=== PATIENT | female | born 1995 | race Two or more races ===

== ENCOUNTER 2025-06-25 07:50 | Day surgery (SDC) | payer OTHER, SELFPAY ==
--- OUTSIDE RECORDS SUMMARY | 2025-06-07 06:20 | XMS_ITS ---
Author Organization [facility] Address [address] [place] [address] Care Team Providers Care Furnace Maintenance Name Role Phone ALVERTO BARNES N.P Primary Care Provider Charles Vargas Jr Unavailable Allergies Allergen (clinical drug ingredient) Drug/Non Drug Allergy documented on EMR Reaction Allergy Type Onset Date Status amoxicillin Amoxicillin Unknown Drug Allergy Act shelly REASON FOR VISIT Patient presents today for IBS, abdominal pain and constipation. Medications Medication SIG (Take, Route, Frequency, Duration) Notes Start Date End Date Status Bariatric Multivitamin/Iron - as directed Orally 06/07/2025 Ac tive metroNIDAZOLE 0.75 % INSERT 1 APPLICATOR VAGINALLY DAILY AT BEDTIME FOR 5 DAYS External for 5 Days Not-Taking Fish Oil 1000 MG 1 capsule Orally Thr ee times a day for 30 day(s) 06/07/2025 Active Vitamin D-3 25 MCG (1000 UT) 1 capsule Orally Once a day for 30 day(s) 06/07/2025 Active metroNIDAZOLE 0.75 % External for 5 Days Not-Taking Social History Tobacco Use: Social History Observation Description Date Details (start date - stop date) Current Smoker NA - NA Tobacco Control (Standard) Question Answer Notes Tobacco use: Current smoker AUDIT-C (Standard) Question Answer Notes Did you have a drink contain ing alcohol in the past year? Yes How often did you have a dri nk containing alcohol in the past year? Monthly or less (1 point) How many drinks did you have on a typical day when you were drinking in the past year? 1 or 2 drinks (0 point) How often did you have six o r more drinks on one occasion in the past year? Never (0 point) Points 1 Interpretation Negative Problems Problem Type SNOMED Code ICD Code Onset Dates Problem Status W/U Status Risk Notes Problem Gastroesophageal reflux disease (874699340) GERD (gastroeso phageal reflux disease) (K21.9) Active confirmed Problem Gastrointestinal tract problem (965008707) Abn findings-G I tract (R93.3) Active confirmed Vital Signs Temperature 97.9 degrees Fahrenheit 06/07/20 25 Blood pressure systolic 001 mm Hg 06/07/20 25 Blood pressure diastolic 01 mm Hg 025 Height 65 in 06/07/2025 Weight 204.8 lbs 06/07/2025 BMI 34.08 kg/m2 06/07/2025 Encounters Encounter Location Date Provider Diagnosis [facility] [address] [place] [address] 06/07/2025 Charles Parks Jr GERD (gastroesophageal reflux disease) K21.9 and Abn findings-GI tract R93.3 Assessments Encounter Date Diagnosis (ICD Code) Assessment Notes Treatment Notes Treatment Clinical Notes Section Notes 06/07/2025 GERD (gastroesopha geal reflux disease) (ICD-10 - K21.9) We discussed her symptoms today. We discussed gastroesophageal reflux disease today. She will begin omeprazole 20 mg daily for good control of her symptoms. We discussed diet, lifestyle modification, and weight management regarding the treatment of reflux. We recommended further evaluation with upper endoscopy. We discussed risks and benefits of the procedure today. She understands these and agrees to proceed. Based on her review of her CT scan which is abnormal and her symptoms, she should have further evaluation with colonoscopy. She is aware of risks and benefits and agrees to proceed. This will be scheduled at her convenience. She is advised to stop fish oil 1 week before the procedure. 06/07/2025 Abn findings-GI tract (ICD-10 - R93.3) We discussed her symptoms today. We discussed gastroesophageal reflux disease today. She will begin omeprazole 20 mg daily for good control of her symptoms. We discussed diet, lifestyle modification, and weight management regarding the treatment of reflux. We recommended further evaluation with upper endoscopy. We discussed risks and benefits of the procedure today. She understands these and agrees to proceed. Based on her review of her CT scan which is abnormal and her symptoms, she should have further evaluation with colonoscopy. She is aware of risks and benefits and agrees to proceed. This will be scheduled at her convenience. She is advised to stop fish oil 1 week before the procedure. Plan Of Treatment Future Test Test Name Order Date UPPER GI ENDOSCOPY 06/07/2025 COLONOSCOPY 06/07/2025 Next Appt Details Provider Name:Charles cummings , 06/25/2025 11:50:00 AM, [address] [place] [address] , [place], [place], [phone], Progress Notes * RUPINDER MARKHAMDOB:1995 (30 yo F)Acc No.[id number]:06/07/2025 Progress Notes Patient: RUPINDER SOTO Provider: Fanny Parks MD :1995 A ge:30 Y S ex:Female Date:06/07/2025 Address:[address] [place], [place] [id number] Pcp:ALVERTO BARNES N.P Subjective: * Chief Complaints: * 1 . Patient presents today for IBS, abdominal pain and constipation.. * ROS: G eneral/Constitutional: Change in appetite d enies. F atigue d enies. ? E NT: Patient denies d ifficulty swallowing. R espiratory: Patient denies s hortness of breath. C ardiovascular: Patient denies c hest pain. G astrointestinal: Comments S [facility] for details. G enitourinary: Difficulty urinating d enies. I ncontinence d enies. M usculoskeletal: Patient denies m uscle aches. S kin: Patient denies p ruritis. N eurologic: Patient denies l ow back pain. P sychiatric: Patient denies m ental or physical abuse. * Medical History: A sthma. * Surgical History: e ar tubes removed , complete ACL repair 2011, bariatric gastric sleeve 12/07. * Hospitalization/Major Diagno stic Procedure: s tomach issues, partial paralyzed bulging disk. 02/07. * Family History: F ather: alive. M other: alive, diagnosed with HTN (hypertension), Heart disease. Dad holes in intestines ended up with bag for months. No family history of liver cancer. * Social History: T obacco Use: T obacco Control (Standard) T obacco use: C urrent smoker. M iscellaneous: M arital status: single. D rug/Alcohol: A AGUSTINA-C (Standard) D id you have a drink containing alcohol in the past year? Y es,?How often did you have a drink containing alcohol in the past year? M onthly or less (1 point), H ow many drinks did you have on a typical day when you were drinking in the past year? 1 or 2 drinks (0 point), H ow often did you have six or more drinks on one occasion in the past year? N ever (0 point), P oints 1 , I nterpretation N egative. * Medications: T aking Fish Oil 1000 MG Capsule 1 capsule Orally Three times a day , Taking Vitamin D-3 25 MCG (1000 UT) Capsule 1 capsule Orally Once a day , Taking Bariatric Multivitamin/Iron - Tablet Chewable as directed Orally , Not-Taking/PRN metroNIDAZOLE 0.75 % Gel INSERT 1 APPLICATOR VAGINALLY DAILY AT BEDTIME FOR 5 DAYS External , Not-Taking/PRN metroNIDAZOLE 0.75 % Gel External * Allergies: A moxicillin. Objective: * Vitals: W t:204.8lbs, Ht:65in, BMI:34.08Index, BP:001/01mm Hg, Temp:97.9, Ht-cm: 165.1, Wt-k.9. * Examination: G eneral Examination: GENERAL APPEARANCE: i n no acute distress. HEAD: n ormocephalic. EYES: s clera non-icteric. ORAL CAVITY: m ucosa moist. NECK/THYROID: n o lymphadenopathy. SKIN: a nicteric. HEART: S 1, S2 normal, no murmurs. LUNGS: c lear to auscultation bilaterally. CHEST: n ormal shape and expansion. ABDOMEN: s oft, nontender, nondistended, bowel sounds present, no organomegaly . EXTREMITIES: n o clubbing, cyanosis, or edema. PSYCH: c ognitive function intact. Assessment: * Assessment: 1. G ERD (gastroesophageal reflux disease) - K21.9 (Primary) 2 . A bn findings-GI tract - R93.3 We discussed her symptoms to day. We discussed gastroesophageal reflux disease today. She will begin omeprazole 20 mg daily for good control of her symptoms. We discussed diet, lifestyle modification, and weight management regarding the treatment of reflux. We recommended further evaluation with upper endoscopy. We discussed risks and benefits of the procedure today. She understands these and agrees to proceed. Based on her review of her CT scan which is abnormal and her symptoms, she should have further evaluation with colonoscopy. She is aware of risks and benefits and agrees to proceed. This will be scheduled at her convenience. She is advised to stop fish oil 1 week before the procedure. Plan: * Treatment: ?Procedure: COLONOSCOPY (Ordered for 06/07/2025)* sched for 06/25/25 at 11:50 ammac,miralax 2.?Abn findings-GI tract?Procedure: UPPER GI ENDOSCOPY (Ordered for 06/07/2025)* sched for 06/25/25 at 11:50 ammac ?Procedure: COLONOSCOPY (Ordered for 06/07/2025)* sched for 06/25/25 at 11:50 ammac,miralax * Preventive Medicine: Counseling: C are goal follow-up plan: A joce Normal BMI Follow-up D ietary management education, guidance, and counseling, B TX management provided Y es. * * The named appointment provid er may or may not be the originator of this progress note, and it is not deemed complete until electronically signed by the appointment provider. Sign off status: Pending * Provider: Fanny Parks MD Date: 06/07/2025 Generated for Chari steele/Tangela/Zaireitting on: 06/08/2025 04:06 PM EDT History and Physical Notes * Examination Category Sub-Category Detail Notes Category Not es General Examination GENERAL APPEARANCE: in no acute di stress HEAD: normocephalic EYES: sclera non-icteric NECK/THYROID: no lymphadenopathy HEART: S1, S2 normal, no mu rmurs CHEST: normal shape and exp ansion LUNGS: clear to auscultatio n bilaterally ABDOMEN: soft, nontender, non distended, bowel sounds present, no organomegaly SKIN: anicteric EXTREMITIES: no clubbing, cyanosi s, or edema PSYCH: cognitive function i ntact ORAL CAVITY: mucosa moist
--- OUTSIDE RECORDS SUMMARY | 2025-06-08 16:06 | XMS_ITS | Patient Health Record ---
Author Organization [facility] Address [address] [place] [phone] Care Team Providers Care Tank Welder Name Role Phone ALVERTO BARNES N.P Primary Care Provider Charles Vargas Jr Unavailable Allergies Allergen (clinical drug ingredient) Drug/Non Drug Allergy documented on EMR Reaction Allergy Type Onset Date Status amoxicillin Amoxicillin Unknown Drug Allergy Act shelly Reason For Referral No Information Medications Medication SIG (Take, Route, Frequency, Duration) [...] 0.75 % External for 5 Days Not-Taking Immunizations Vaccine Route Administration Date Status Comme nts Influenza Unknown 06/02/2024 Administered Social History Tobacco Use: Social History Observation [...] Problem Status W/U Status Risk Notes Problem Gastrointestinal tract problem (165370617) Abn findings-G I tract (R93.3) Active confirmed Problem Gastroesophageal reflux disease (505490376) GERD (gastroeso phageal reflux disease) (K21.9) Active confirmed Vital Signs Temperature 97.9 degrees Fahrenheit 06/07/2025 Blood pressure diastolic 01 mm Hg 06/07/2025 Height 65 in 06/07/2025 Blood pressure systolic 001 mm Hg 06/07/2025 Weight 204.8 lbs 06/07/2025 BMI 34.08 kg/m2 06/07/2025 Encounters Encounter Location Date Provider Diagnosis [facility] [address] [place] [address] 06/07/2025 Charles Parks Jr GERD (gastroesophageal reflux disease) K21.9 and Abn findings-GI tract R93.3 [facility] [address] [place] [address] 02/11/2025 Charles Parks Jr Assessments Encounter Date Diagnosis (ICD Code) Assessment Notes Treatment Notes Treatment Clinical Notes Section Notes 06/07/2025 Abn findings-GI tract (ICD-10 - R93.3) [...] oil 1 week before the procedure. 06/07/2025 GERD (gastroesopha geal reflux disease) (ICD-10 [...] 06/07/2025 Next Appt Details Provider Name:Charles cummings Jr, 06/25/2025 11:50:00 AM, [address] [place] [address] , [place], [place], [phone], Insurance Providers Payer Name Payer Address Payer Phone Subscriber Number Group Number Insured Name Patient Relationship to Insured Coverage Start Date Coverage End Date [facility] [address] [place] [address] [phone] [id number] RUPINDER MARKHAM Self - patient is the insured Medical (General) History Medical History History ICD Code asthma Surgical History Surgery Date(Month/Year) bariatric gastric sleeve 12/07 complete ACL repair 2011 ear tubes removed Hospitalization History Reason Date(Month/Year) stomach issues, partial paralyzed bulgin g disk. 02/07
--- OUTSIDE RECORDS SUMMARY | 2025-06-08 16:06 | XMS_ITS | Clinical Summary ---
Author Organization [facility] Address [address] [place] [address] Phone Care Team Providers Care Feature Writer Name Role Phone Elizabeth Hutchinson SENIOR PORTFOLIO ANALYST Primary Care Provider [phone] Allergies Active Allergy Reactions Criticality Noted Date Comments Amoxicillin 01/10/2016 Not sure what the reaction is per pt House Dust 09/11/2024 Kidney Mirza 09/11/2024 Mold 09/11/2024 Pollen Extracts 09/11/2024 Medications albuterol HFA (PROAIR HFA ; PROVENTIL HFA ; VENTOLIN HFA) 90 mcg/actuation inhaler Inhale 1 Puff into the lungs 4 times daily as needed for Cough, Wheezing or Shortness of Breath. 8 Active rizatriptan (MAXALT) 10 mg tablet Take 1 tablet (10 mg total) by mouth 1 (one) time if needed for migraine (may repeat x1). May repeat in 2 hours if unresolved. Do not exceed 30 mg in 24 hours. 9 tablet 4 09/11/20 25 Active Winlevi 1 % cream APPLY TO FACE TWICE DAILY Active clobetasoL (TEMOVATE) 0.05 % topical solution APPLY TO SCALP TWICE A DAY FOR 4 WEEKS THEN NEEDED 5 Active fluocinolone and shower cap 0.01 % oil APPLY TO SCALP AT BEDTIME, WASH OUT IN MORNING FOR 2 WEEKS 5 Active clindamycin (CLEOCIN T) 1 % lotion Apply topically 1 (one) time each day if needed. Active Active Problems Problem Noted Date Diagnosed Date Anxiety 09/02/2024 Asthma 09/02/2024 Depression 09/02/2024 Lactose intolerance 09/02/2024 Learning disability 09/02/2024 Migraine 09/02/2024 Morbid obesity ([facility] V24, [facility] V28) 2023 PCOS (polycystic ovarian syndrome) 01/17/2016 Elevated fasting glucose 01/10/2016 Encounters Date Type Department Care Team Description 04/15/2025 10:30 AM EDT Telemedicine [facility] [address] [place] [address] Corry Ochoa PA Migraine without aura and without status migrainosus, not intractable (Primary Dx) from Last 3 Months Immunizations Name Administration Dates Next Due Influenza trivalent, with pr eservative (Fluzone; Afluria) 6mo and older 07/15/2014 Tdap Tetanus diptheria acell ular pertussis (Boostrix; Adacel) 7yo and older 09/24/2017 Surgical History Surgery Date Site/Laterality Comments GASTRIC BYPASS Medical History Medical History Date Comments PCOS (polycystic ovarian syndrome) Asthma Migraines Hydradenitis Back pain Social History Tobacco Use Types Packs/Day Years Used Date Smoking Tobacco: Never Assessed Comments Unknown Sex and Gender Information Value Date Recorded Sex Assigned at Not on file Legal Sex Female 11:16 PM EST Gender Identity Not on file Sexual Orientation Not on file Obstetrics History Last Filed Vital Signs Vital Sign Reading Time Taken Comments Blood Pressure 119/78 11/23/2024 8:37 AM EDT Pulse 67 11/23/2024 8:37 AM EDT Temperature 36 C (96.8 F) 11/23/2024 8:37 AM EDT Respiratory Rate - - Oxygen Saturation 98% 11/23/2024 8:37 AM EDT Inhaled Oxygen Concentration - - Weight 99.8 kg (220 lb) 09/11/2024 11:18 AM EST Height 162.6 cm (5' 4 ) 09/11/2024 11:18 AM EST Body Mass Index 37.76 09/11/2024 11:18 AM EST Plan of Treatment Health Maintenance Due Date Last Done Comments Cervical Cancer Screening: Pap Smear 2018 Pneumococcal Vaccine: Pediatrics (0 to 5 Years) and At-Risk Patients (6 to 49 Years) (2 of 2 - PCV) 06/27/2023 06/27/2022 Cholesterol Screening (Lipid Panel) 09/01/2024 09/24/2017 HIV Screening 09/01/2024 Hepatitis C Screening 09/01/2024 Social Influencers of Health Screening 09/01/2024 Depression Screening 09/16/2024 COVID-19 Vaccine ( season) 2025 10/10/2022, 09/13/2021, 11/16/2020, Additional history exists Influenza Vaccine (#1) 2025 , 08/23/2023, 06/27/2022, Additional history exists Hypertension/CHF/CAD Annual BMP Blood Test 09/11/2025 09/11/2024, 09/24/2017 DTaP,Tdap,and Td Vaccines (10 - Td or Tdap) 11/09/2034 11/09/2024, 01/29/2019, 09/24/2017, Additional history exists Hepatitis B Vaccines Completed 1995, 1997, 1997 HIB Vaccines Completed 07/18/1998, 07/18, 1997, Additional history exists IPV Vaccines Completed 02/06/2001, 01/15, 1997, Additional history exists MMR Vaccines Completed 01/29/2002, 02/08/1998 Varicella Vaccines Aged Out 09/26/2009, 02/09/1998 No longer eligible based on patient's age to complete this topic HPV Vaccines Completed 03/30/2010, 11/14, 09/26/2009 Meningococcal ACWY Vaccine Completed 01/03/2015, Hepatitis A Vaccines Aged Out No long er eligible based on patient's age to complete this topic Meningococcal B Vaccine Aged Out No l onger eligible based on patient's age to complete this topic RSV Immunization Patients Under 20 months Aged Out No longer eligible based on patient's age to complete this topic Procedures Procedure Name Priority Date/Time Associated Diagnosis Comments CREATININE, SERUM Routine 09/11/2024 12: 15 PM EST Migraine without aura and without status migrainosus, not intractable Pituitary adenoma ([facility] V24, [facility] V28) LIPID PANEL Routine 09/24/2017 from Last 3 Months or Most Recently Relevant to Health Maintenance Results * Creatinine (09/11/2024 12:15 PM EST) Creatinine 0.84 0.50 - 1.10 mg/dL LAB CHEMISTRY METHOD 09/11/2024 2:37 PM EST [facility] eGFR 98 >=60 mL/min/1. 73m2 LAB CHEMISTRY METHOD 09/11/2024 2:37 PM EST [facility] Comment:Calculation based on the Chronic Kidney Disease Epidemiology Collaboration (CKD-EPI) equation refit without adjustment for race. Blood Venous blood specimen / Unknown Venipuncture / Unknown 09/11/2024 12:15 PM EST 09/11/2024 12:15 PM EST [place] Mcmillan MD LAB BLOOD ORDERABLES Fin al Result [facility] [address] [place] [address], * Lipid panel (09/24/2017) LDL/HDL Ratio 2 0 - 4 Triglycerides 110 0 - 150 mg/dL Cholesterol 164 0 - 200 mg/dL HDL 68 >=40 mg/dL LDL Cholesterol 74 0 - 100 mg/dL Blood Venous blood specimen / Unknown [facility] Provider LAB BLOOD ORDERABLES Melba l Result from Last 3 Months or Most Recently Relevant to Health Maintenance Insurance [facility] Care Teams Feature Writer Relationship Specialty Start Date End Date Elizabeth Hutchinson NP [address] [place] [address] PCP - General Nurse Practitioner 09/11/24
--- OUTSIDE RECORDS SUMMARY | 2025-06-08 16:07 | XMS_ITS | Patient Health Record ---
Author Organization [facility] Address [address] [place] [address] Care Team Providers Care Sewing Department Supervisor Name Role Phone Elizabeth Hutchinson NP Primary Care Provider UnavailTwan Harrison Unavailable [phone] Allergies Allergen (clinical drug ingredient) Drug/Non Drug Allergy documented on EMR Reaction Allergy Type Onset Date Status Penicillin Unknown Drug Allergy Active Reason For Referral No Information Medications Medication SIG (Take, Route, Fr equency, Duration) Notes Start Date End Date Status Gabapentin Active Tylenol PRN Active Calcium Active Multivitamin Active Bariatric Multivitamins Active Vitamin D Active ProAir HFA PRN Active Social History Tobacco Use: Social History Observation Description Date Details (start date - stop date) Never Smoker NA - NA Tobacco use other than smoking: Question Answer Notes Are you an other tobacco user? Yes Tobacco Control (Standard) Question Answer Notes Tobacco use: Nonsmoker Additional Findings: Tobacco non-user Current no nsmoker AUDIT-C (Standard) Question Answer Notes Did you have a drink contain ing alcohol in the past year? Yes How often did you have a dri nk containing alcohol in the past year? Monthly or less (1 point) How many drinks did you have on a typical day when you were drinking in the past year? Declined to specify (0 point) How often did you have six o r more drinks on one occasion in the past year? Declined to specify (0 point) Points 1 Interpretation Negative Problems Problem Type SNOMED Code ICD Code Onset Dates Problem Status W/U Status Risk Notes Problem Osteoarthritis of midtarsal joint of left foot (3155220872682810 ) Osteoarthritis of midtarsal joint of left foot (M19.072) Active confirmed Problem Osteoarthritis of midtarsal joint of right foot (6600144823760024 ) Osteoarthritis of midtarsal joint of right foot (M19.071) Active confirmed Vital Signs Height 5ft 4in in 02/15/2025 Weight 213 lbs 02/15/2025 BMI 36.56 kg/m2 02/15/2025 Encounters Encounter Location Date [facility] [address] [place] [phone] 02/15/2025 Twan Jaimes Pain in left foot M79.672 ; Pain in left ankle and joints of left foot M25.572 ; Bursitis of left foot M77.52 ; Osteoarthritis of midtarsal joint of left foot M19.072 ; Pain in right foot M79.671 ; Pain in right ankle and joints of right foot M25.571 ; Bursitis of right foot M77.51 and Osteoarthritis of midtarsal joint of right foot M19.071 [facility] [address] 02/09/2025 Twan Jaimes Assessments Encounter Date Diagnosis (ICD Code) Assessment Notes Treatment Notes Treatment Clinical Notes Section Notes 02/15/2025 Pain in left ankle and joints of left foot (ICD-10 - M25.572) 02/15/2025 Pain in left foot (ICD-10 - M79.672) 02/15/2025 Bursitis of left foot (ICD-10 - M77.52) 02/15/2025 Osteoarthritis of midtarsal joint of left foot (ICD-10 - M19.072) 02/15/2025 Pain in right foot (ICD-10 - M79.671) 02/15/2025 Pain in right ankle and joints of right foot (ICD-10 - M25.571) 02/15/2025 Bursitis of right foot (ICD-10 - M77.51) 02/15/2025 Osteoarthritis of midtarsal joint of right foot (ICD-10 - M19.071) Plan Of Treatment Pending Test Test Name Order Date X ray : Foot, left 3V 02/15/2025 X ray : Foot, right 3V 02/15/2025 Insurance Providers Payer Name Payer Address Payer Phone Subscriber Number Group Number Insured Name Patient Relationship to Insured Coverage Start Date Coverage End Date [facility] [address] [facility] [address] [id number] Rosa Carvajal Self - patient is the insured Medical (General) History Medical History History ICD Code asthma Headaches/Migraines Surgical History Surgery Date(Month/Year) complete acl 2011 gastric sleeve 12/03/23 Hospitalization History Reason Date(Month/Year) ER- stomach issues, back issues 01/28-01/14 06/10 ER-stomach issues, back issues 01/19- ER- stomach issues, back issues 01/14-
--- OUTSIDE RECORDS SUMMARY | 2025-06-08 16:07 | XMS_ITS | Patient Health Record ---
Author Organization [facility] [address] Address [address] [place] [address] Care Team Providers Care Aquaculture Program Director Name Role Phone Michael Belcher Unavailable Allergies Allergen (clinical drug ingredient) Drug/Non Drug Allergy documented on EMR Reaction Allergy Type Onset Date Status amoxicillin Amoxicillin Unknown Drug Allergy Act shelly Reason For Referral No Information Medications Medication SIG (Take, Route, Fr equency, Duration) Notes Start Date End Date Status Contrave 8-90 MG 2 tablets Orally Twi ce a day; Duration: 30 days Active metFORMIN HCl ER 500 MG 1 tablet with ev ening meal Orally Once a day; Duration: 30 day(s) 08/29/2022 Active Topamax 25 MG 1 tablet Orally Once a day; Duration: 30 day(s) 09/03/2022 Active Problems Problem Type SNOMED Code ICD Code Onset Dates Problem Status W/U Status Risk Notes Problem Morbid obesity (disorder) (468069156) Morbid (severe) obesity due to excess calories (E66.01) Active confirmed Problem Morbid obesity (235662798) Morbid obesity (E66.01) Active confirmed Problem Migraine (81662963) Migraine without status migrainosus, not intractable, unspecified migraine type (G43.909) Active confirmed Problem Seasonal allergy (211168801) Seasonal allergies (J30.2) Active confirmed Problem Fatty liver (651306867) Fatty liver (K76.0) Active confirmed Problem Body mass index 40+ - severely obese (614752928) BMI 50.0-59.9, adult (Z68.43) Active confirmed Problem Mild intermittent asthma (641620337) Mild intermittent asthma without complication (J45.20) Active confirmed Problem Polycystic ovary syndrome (disorder) (367671170) PCOS (polycystic ovarian syndrome) (E28.2) Active confirmed Problem Body mass index 40+ - severely obese (828004378) BMI 45.0-49.9, adult (Z68.42) Active confirmed Plan Of Treatment No Information Insurance Providers Payer Name Payer Address Payer Phone Subscriber Number Group Number Insured Name Patient Relationship to Insured Coverage Start Date Coverage End Date [facility] [address] [place] [address] [phone] [id number] Rosa Carvajal Self - patient is the insured Medications Administered Medication Instructions Date of Administration Dosage Notes MICC B12 INJECTION 09/26/2021 lot # [id number] MICC B12 INJECTION 10/10/2021 lot # [id number] MICC B12 INJECTION 10/31/2021 lot [id number] MICC B12 INJECTION 03/27/2022 MICC B12 INJECTION 05/23/2022 lot # [id number] Medical (General) History Medical History History ICD Code migraine headaches seasonal allergies Surgical History Surgery Date(Month/Year) acl repair
[2025-06-23 16:27] VITALS: BMI 36.0
--- NOTE | 2025-06-24 10:35 | HO.ANESPROP2 ---
Documented by User: Debra Ji NP 06/24/25 10:35 HPI - Anesthesia Eval Consult details Narrative: 30yo F for Upper Endoscopy and Colonoscopy [facility] Past Medical History Medical History Bradycardia Environmental allergies GERD (gastroesophageal reflux disease) KYLE (generalized anxiety disorder) MDD (major depressive disorder) Chronic low back pain Polycystic ovary syndrome GALINA (obstructive sleep apnea) Obesity Migraine HTN (hypertension) Hidradenitis suppurativa Depression Anxiety Asthma Abdominal pain Surgical History Surgical History Hx of wisdom tooth extraction (2014) Hx of arthroscopy of left knee History of repair of ACL (2011) Hx of bariatric surgery (12/12/23) Social History Social History Patient Tobacco Use Status: Current everyday Tobacco user Have you been hit, kicked, punched, or otherwise hurt by someone within the past year? If so, by whom?: No Are you DNR?: No Advance Directives: No Advance Directives Information Provided: Yes Patient : No FDLMP: last mth Meds Allergies Allergy/AdvReac Type Severity Reaction Status Date / Time amoxicillin Allergy Unknown Verified 06/23/25 13:21 Home Medications ?Medication ?Instructions ?Recorded ?Confirmed ?Last Taken ?Type albuterol sulfate 90 mcg/actuation 2 puff inhalation Q4-6H PRN 06/23/25 06/23/25 Unknown History aerosol inhaler Shortness Of Breath Or Wheezing cholecalciferol (vitamin D3) 50 50 mcg PO DAILY 06/23/25 06/23/25 06/17/25 History mcg (2,000 unit) capsule (Vitamin D3) gjdyfnxr-[id number]-ndoj 45 mg-folic cap PO 06/23/25 06/17/25 History acid 800 mcg-vit K 120 mcg capsule (Bariatric Multivitamins) sennosides 8.6 mg tablet (senna) 8.6 mg PO QAM 06/23/25 06/23/25 06/17/25 History Exam Height,Weight and Vital Signs: Height 5 ft 4 in Weight 95.254 kg Assessment and Plan Assessment Anesthesia Assessment: Chart Reviewed Documented by User: Bobby Burton MD 06/25/25 09:08 [facility] Past Medical History Medical History Bradycardia Environmental allergies GERD (gastroesophageal reflux disease) KYLE (generalized anxiety disorder) MDD (major depressive disorder) Chronic low back pain Polycystic ovary syndrome GALINA (obstructive sleep apnea) Obesity Migraine HTN (hypertension) Hidradenitis suppurativa Depression Anxiety Asthma Abdominal pain Surgical History Surgical History Hx of wisdom tooth extraction (2014) Hx of arthroscopy of left knee History of repair of ACL (2011) Hx of bariatric surgery (12/12/23) Social History Social History Patient Tobacco Use Status: Current everyday Tobacco user Have you been hit, kicked, punched, or otherwise hurt by someone within the past year? If so, by whom?: No Are you DNR?: No Advance Directives: No Advance Directives Information Provided: Yes Patient : No FDLMP: last mth Meds Allergies Allergy/AdvReac Type Severity Reaction Status Date / Time amoxicillin Allergy Unknown Verified 06/23/25 13:21 Home Medications ?Medication ?Instructions ?Recorded ?Confirmed ?Last Taken ?Type albuterol sulfate 90 mcg/actuation 2 puff inhalation Q4-6H PRN 06/23/25 06/23/25 Unknown History aerosol inhaler Shortness Of Breath Or Wheezing cholecalciferol (vitamin D3) 50 50 mcg PO DAILY 06/23/25 06/23/25 06/17/25 History mcg (2,000 unit) capsule (Vitamin D3) mwtoelmx-npkjdwom-rjax 45 mg-folic cap PO 06/23/25 06/17/25 History acid 800 mcg-vit K 120 mcg capsule (Bariatric Multivitamins) sennosides 8.6 mg tablet (senna) 8.6 mg PO QAM 06/23/25 06/23/25 06/17/25 History Exam Exam Date and Time: 06/25/25 Airway TM Dist: >3cm Neck ROM: Full Partial: Upper Heart: rr Lungs: ctab vesicular
[2025-06-25 08:28] VITALS: BP 117/79; PULSE 48; RESP 18; TEMP 36.1; O2SAT 97; BMI 34.8
[2025-06-25 08:52] LABS: UPreg QC Valid YES
[2025-06-25] MEDS: Lactated Ringers 1,000 ML 100 ML IVCONT (09:16)
--- NOTE | 2025-06-25 09:33 | MHC.SHP ---
Pre-Procedural Eval Section A - 24 Hr Update-Section A only Date of Service: 06/25/25 The patient is an INPATIENT: No Changes since office visit: No Cold of Flu in the past 2 weeks, No New Medical Problems, No Changes in Medication and No Patient answered all questions The patient has been examined within 24 hours of the surgical procedure. The History & Physical has been completed within 30 days and I have reviewed it.: Yes Section B - Complete if H&P > 30 days Chief Complaint: gerd, Allergies: Allergies Allergy/AdvReac Type Severity Reaction Status Date / Time amoxicillin Allergy Unknown Verified 06/23/25 13:21 Plan I have reviewed the history and physical and performed a pertinent physical examination on my patient. No changes have occurred unless specified. Time Spent With Patient Time: Total time managing care of this patient today ____ minutes.
[2025-06-25 10:23] VITALS: BP 130/64; PULSE 66; RESP 13; TEMP 36.2; O2SAT 100
[2025-06-25 10:41] VITALS: BP 149/85; PULSE 70; RESP 16; TEMP 36.2; O2SAT 100
--- NOTE | 2025-06-25 11:09 | OP_ITS ---
DATE OF SERVICE: 06/25/2025 SURGEON: Charles Parks MD INDICATIONS: 1. Gastroesophageal reflux disease. 2. Abnormal findings in the GI tract. PREOPERATIVE DIAGNOSIS: POSTOPERATIVE DIAGNOSIS: PROCEDURE PERFORMED: Upper endoscopy with biopsy, colonoscopy to the terminal ileum with biopsy. ESTIMATED BLOOD LOSS: COMPLICATIONS: ANESTHESIA: Monitored anesthesia care. ASSISTANTS: SPECIMENS: DESCRIPTION OF PROCEDURE: A history and physical was performed. The risks and benefits of the procedure were explained to the patient and informed consent was obtained. The patient was placed in the left lateral decubitus position. The Olympus video gastroscope was introduced into the esophagus, stomach, and duodenum. Examination was performed. The scope was removed. She was repositioned for colonoscopy. A digital rectal exam was performed and was found to be normal. The Olympus pediatric video colonoscope was introduced into the rectum and advanced to the cecum. The cecum was identified by transillumination, palpation, and identification of ileocecal valve. Examination was performed. The scope was removed. She tolerated both procedures well and was returned to the recovery area in stable condition. FINDINGS: Upper endoscopy: 1. Esophagus: The esophagus was normal. Biopsies were obtained from the EG junction. 2. Stomach: The stomach showed surgical changes consistent with a prior history of gastric sleeve surgery. Biopsies were obtained from the antrum. No ulcer was identified. 3. Duodenum: The bulb and 2nd portion were normal. Random duodenal biopsies were obtained. Colonoscopy: The terminal ileum was normal. This was biopsied. The visualized colonic mucosa was within normal limits without evidence of masses or ulcers. There was no evidence of Crohn disease or ulcerative colitis. Biopsies were obtained from the sigmoid. Retroflexed examination was normal. IMPRESSION: 1. Normal upper endoscopy. 2. Normal colonoscopy. RECOMMENDATION: Follow up the biopsy results. Screening colonoscopy at age 47. MD BONNIE Poon/SYED / [id number] MTDJsoe
== END 2025-06-25 11:04 | disposition home or self-care (01) ==
PROVIDERS: Nurse Practitioner; PCP Nurse Practitioner Family; Visit Provider Internal Medicine Gastroenterology
PROC: (CPT 45380; principal; 2025-06-25 09:50)
DX: K58.9 Irritable bowel syndrome, unspecified (principal); K59.00 Constipation, unspecified; R10.9 Unspecified abdominal pain; Z86.19 Personal history of other infectious and parasitic diseases; K21.9 Gastro-esophageal reflux disease without esophagitis; J45.909 Unspecified asthma, uncomplicated; Z98.84 Bariatric surgery status; Z79.899 Other long term (current) drug therapy; Z88.1 Allergy status to other antibiotic agents; F17.200 Nicotine dependence, unspecified, uncomplicated
CPT/HCPCS: 45380; 43239; 81025; 88305; 88313; 88342; J0461; J1596; J2003; J2405; J2704; J2765; J3010

== ENCOUNTER 2025-08-23 09:03 | Outpatient (AMB) | payer OTHER, SELFPAY ==
--- NOTE | 2025-08-23 09:11 | A.PHYSOV_ITS ---
Vital Signs 08/23/25 09:15 Height 5 ft 4 in Weight 206 lb BMI 35.4 Intake Visit Reasons: F/U after injection 07/09/2025 Intake Note: Patient is here for follow up after 07/09/25 Caudal. Allergies amoxicillin Allergy (Verified 08/23/25 09:17) Unknown HPI Comments Details: History of Present Illness The patient is a 30 year old female presenting for a follow-up visit for chronic low back pain with left-sided sciatica. She reports about 30-40% improvement following a recent caudal sacral injection, with the pain now localized more to her left leg rather than her back. Her symptoms, which include radiating pain and tightness in the lower back, worsen on days when she is on her feet a lot. 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 She has returned to work with restrictions, avoiding heavy lifting. For pain management, she uses ice, heat, and stretching, and takes Tylenol when needed. She has a prescription for gabapentin but takes it only on bad days due to side effects. She has also recently started taking turmeric shots and has tried a topical cannabis cream. A previous injection was less effective, providing relief for only two weeks before her symptoms, including leg dragging, returned. Pain Description - Location: The patient reports pain primarily in the left leg with associated tightness in the lower back. - Quality: Described as a radiating pain and tightness. - Exacerbating Factors: Pain is worse on days with prolonged standing. - Relieving Factors: She finds relief with rest, stretching on a recliner, ice, and heat. 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 Procedure: Caudal injection 07/09/2025 40% reduction PFSH Medical History Bradycardia Environmental allergies GERD (gastroesophageal reflux disease) KYLE (generalized anxiety disorder) MDD (major depressive disorder) Chronic low back pain Polycystic ovary syndrome GALINA (obstructive sleep apnea) Obesity Migraine HTN (hypertension) Hidradenitis suppurativa Depression Anxiety Asthma Abdominal pain Surgical History Hx of wisdom tooth extraction (2014) Hx of arthroscopy of left knee History of repair of ACL (2011) Hx of bariatric surgery (12/12/23) Social History (Updated 08/20/25 @ 07:58 by Tatianna Munguia MA) Alcohol intake: current Alcohol intake frequency: holidays/special occasions only Patient Tobacco Use Status: Current everyday Tobacco user Review of Systems Narrative Review of Systems - Musculoskeletal: Reports lower back tightness, especially after being on her feet a lot. - Neurological: Reports radiating pain in the left leg. - She also reports a history of her leg dragging before the most recent injection. Physical Exam Exam Exam: Physical Exam Lumbar Spine: Examination of her lumbar spine, there is no visible swelling or deformity. She is tender to lower lumbar facets. She is otherwise nontender. Full range of motion. Special Tests: Lhermittes sign was negative Heel Toe walk is normal Left straight leg raise: Less positive left Right straight leg raise: Negative Special tests Andry test is negative Ganslen's test is negative SI Joint compression test negative Carrie test negative Piriformis stretch is negative Lower Extremities: Full range of motion bilateral lower extremities. No calf pain or edema. Neuro: Sensation: Intact to lower extremities bilaterally Strength L2 (Psoas): 5/5 on the left and 5/5 on the right. L3 (Quads): 5/5 on the left and 5/5 on the right. L4 (Ant tibialis): 5/5 on the left and 5/5 on the right. L5 (EHL) 5/5 on the left and 5/5 on the right. S1 (Gastroc): 5/5 on the left and 5/5 on the right. DTR L4: (Patellar) Left 2 Right 2 S1: (Achilles) Left 2 Right 2 Babinski Downgoing No pathologic clonus. No involuntary movement. Vital Signs: BMI result Body Mass Index 35.4 Assessment & Plan Assessment & Plan (1) Lumbar radiculopathy: Code(s): M54.16 - Radiculopathy, lumbar region Category: Medical (2) Lumbar spondylosis: Code(s): M47.816 - Spondylosis without myelopathy or radiculopathy, lumbar region Category: Medical Plan Pain Management - Affect: The patient states her pain is significantly affecting her quality of life and her ability to be active. - Analgesia: The patient reports 30-40% pain relief from a recent sacral injection. - She uses Tylenol as needed, has tried topical cannabis cream, and has recently started taking turmeric. - Adverse Effects: She reports that even a low dose of gabapentin makes her feel unwell, so she only takes it when absolutely necessary. - Activities of Daily Living: She has returned to work with restrictions, such as no heavy lifting. 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 - Aberrant Drug Related Behaviors: No aberrant behaviors were reported. Plan Patient was informed and verbally consented to the use of an ambient scribe for clinic note documentation during this visit. 1. Left-Sided Sciatica The patient reports 30-40% improvement after a recent sacral injection for left- sided sciatica, with pain now more localized to the leg. Despite the improvement, her quality of life remains significantly affected. A more targeted nerve root injection may be considered if she does not experience further improvement. Conservative management options were discussed, including continuing Tylenol as needed. It was suggested she try turmeric as a natural anti-inflammatory. The patient was encouraged to gradually increase activity with walking, biking, swimming, and specific bodyweight exercises for core strengthening, while avoiding loaded squats. If symptoms do not improve, the plan is to consider repeating the recent, more effective injection. The patient will follow up in approximately 1.5 months to reassess her condition and decide on the next steps, at which time an injection can be ordered if needed. Discussion Notes I reviewed the patient's progress since her recent sacral injection, acknowled ging her report of 30-40% improvement. I explained that the injection targeted the nerves shown to be pinched on her MRI. Given that she is still not satisfied with her level of relief, I presented the option of a different, more specific nerve root injection, clarifying that she could also wait and give it more time. We discussed that since her quality of life is still affected, another injection is a reasonable consideration. We discussed repeating the more recent, effective injection, as a previous one was less helpful. I encouraged her to gradually increase her activity level and provided her with a list of bodyweight exercises, advising against activities that load the spine, such as squats with a bar. I also suggested trying turmeric as a natural anti-inflammatory. The plan is to follow up in about 1.5 months to reassess, and she can contact us sooner if she wishes to proceed with another injection, which I may be able to order without an additional visit. Patient Instructions - Continue to use Tylenol as needed for pain. - You can try taking turmeric, as it is a natural anti-inflammatory that may help reduce your pain. - Begin to slowly increase your physical activity. - Good activities include walking, biking, swimming, and light bodyweight exercises. - Do not perform exercises that put heavy weight on your back, such as squats with a barbell. - If your pain is not improving, please call our office in about a month, as we may be able to schedule another injection for you. - Please schedule a follow-up appointment in about one and a half months to check on your progress. Coding Level of Care Code Tele Est Pt Level 3 (12488) Diagnoses Lumbar radiculopathy M54.16 Lumbar spondylosis M47.816
[2025-08-23 09:15] VITALS: BMI 35.4
== END 2025-08-23 09:46 | disposition home or self-care (01) ==
LOC: HO.HPHYS 09:03
PROVIDERS: PCP Nurse Practitioner Family; Visit Provider Physician Assistant
DX: M54.16 Radiculopathy, lumbar region (principal); M47.816 Spondylosis without myelopathy or radiculopathy, lumbar region
CPT/HCPCS: 99213